=== PATIENT | female | born 1985 | race Hispanic/Latino ===

== ENCOUNTER 2021-01-03 09:48 | Day surgery (SDC) | payer OTHER ==
[~2021-01-03 09:48] MED LIST: ACETAMINOPHEN 500 MG TAB PO SCH; BUPIVACAINE/PF (0.5%) 5 MG/1 ML 30 ML VIAL INFILTRATI ONE; CELECOXIB 200 MG CAP PO NR; GABAPENTIN 300 MG CAP PO NR; MIDAZOLAM 2 MG/2 ML INJ IV NR; SCOPOLAMINE TRANSDERMAL PATCH 72 HR TD NR; SODIUM CHLORIDE 0.9% IRR 1,500 ML BOTTLE IR ONE
[2021-01-03] MEDS ORDERED: HYDROmorphone 1 MG/1 ML INJ IV PRN (10:41)
[2021-01-03] MEDS ORDERED: ONDANSETRON 4 MG/2 ML INJ IV PRN (10:41)
[2021-01-03] MEDS ORDERED: oxyCODONE /ACETAMINOPHEN 5-325MG TAB PO PRN (10:41)
--- NOTE | 2021-01-03 10:41 | Anesthesia Consultation ---
Anesthesia Consult and Med Hx Date of service: 01/03/21 - Airway Anesthetic Teeth Evaluation: Good ROM Head & Neck: Adequate Mental/Hyoid Distance: Adequate Mallampati Class: Class III Intubation Access Assessment: Possibly Difficult - Pre-Operative Health Status ASA Pre-Surgery Classification: ASA2 Proposed Anesthetic Plan: General - Pulmonary Hx Smoking: No Hx Respiratory Symptoms: No - Cardiovascular System Hx Hypertension: No - Central Nervous System CVA: No - Endocrine Hx Renal Disease: No Hx Liver Disease: No Hx Insulin Dependent Diabetes: No Hx Non-Insulin Dependent Diabetes: No Hx Hypothyroidism: Yes - Other Systems Hx Substance Use: Yes (Marijuana daily) Hx Obesity: Yes (BMI 33)
--- NOTE | 2021-01-03 10:41 | Anesthesia Day of Surgery ---
Anesthesia Day of Surgery - Day of Surgery Patient Examined: Yes Patient H&P Reviewed: Yes Patient is NPO: Yes
[2021-01-03] MEDS ORDERED: MIDAZOLAM 2 MG/2 ML INJ IV NR (11:00)
[2021-01-03] MEDS ORDERED: SCOPOLAMINE TRANSDERMAL PATCH 72 HR TD NR (11:00)
--- NOTE | 2021-01-03 11:40 | Short Stay Summary ---
Short Stay Documentation Date of service: 01/03/21 Narrative H&P: 35y/o with undesired fertility. The patient is aware of other contraceptive options. She elects for permanent sterilization. - History Principal diagnosis: Unwanted fertility Past Medical History: hypothyroidism, migraines Past Surgical History: appendectomy, cholecystectomy, , Other (lap band surgery; shoulder surgery) Social history: - Allergies and Medications Current Medications: Allergies metal Allergy (Uncoded 01/02/21 15:28) Rash With prolonged exposure Home Medications Medication Instructions Recorded Confirmed Last Taken Type Dextroamphetamine/Amphetamine 10 mg PO DAILY 01/02/21 01/02/21 Unknown History [Adderall 10 mg Tablet] Levothyroxine [Synthroid] 100 mcg PO QAM 01/02/21 01/02/21 Unknown History Omeprazole 20 mg PO DAILY PRN 01/02/21 01/02/21 Unknown History Zolpidem (Nf) [Ambien (Nf)] 10 mg PO QHS PRN 01/02/21 01/02/21 Unknown History Active Medications Acetaminophen (Acetaminophen 500 Mg Tab) 1,000 mg PO PREOP PEPPER Gabapentin (Gabapentin 300 Mg Cap) 300 mg PO PREOP NR Stop: 01/03/21 23:59 Hydromorphone HCl (Hydromorphone 1 Mg/1 Ml Inj) 0.5 mg IV Q10MIN PRN PRN Reason: Pain , Severe (7-10) Stop: 01/03/21 23:00 Lactated Ringer's (Lactated Ringers) 1,000 mls @ 100 mls/hr IV DIRECT PEPPER Stop: 01/03/21 23:59 Midazolam HCl (Midazolam 2 Mg/2 Ml Inj) 2 mg IV PREOP NR Stop: 01/03/21 23:59 Ondansetron HCl (Ondansetron 4 Mg/2 Ml Inj) 4 mg IV ONCE PRN PRN Reason: Nausea And Vomiting Stop: 01/03/21 18:00 Oxycodone/Acetaminophen (Oxycodone /Acetaminophen 5-325mg Tab) 1 tab PO ONCE PRN PRN Reason: Pain, Moderate (4-6) Stop: 01/03/21 16:00 Scopolamine (Scopolamine Transdermal Patch 72 Hr) 1 each TD PREOP NR Stop: 01/03/21 23:00 - Physical exam General appearance: no acute distress Integumentary: no rash HEENT: Atraumatic Lungs: Clear to auscultation Breasts: deferred Heart: Regular rate Gastrointestinal: normal Female Genitourinary: deferred - Brief post op/procedure progress note Date of procedure: 01/03/21 Pre-op diagnosis: Unwanted fertility Post-op diagnosis: same (Left dermoid cyst) Procedure: Laparoscopy Bilateral salpingectomy Left ovarian cystectomy Anesthesia: GETA Surgeon: DEEPAK SAVAGE Estimated blood loss: minimal Pathology: list (Left ovarian cyst wall and bilateral fallopian tubes) Specimen disposition: to lab Condition: stable - Hospital course Hospital course: The patient was admitted the day of surgery underwent a laparoscopy bilateral salpingectomy and left ovarian cystectomy. Please see operative note for details of surgery. Her postoperative course was uneventful. - Disposition Condition at discharge: Good Disposition: 01 HOME / SELF CARE / HOMELESS Short Stay Discharge Plan Activity: other (Pelvic rest for 1 week) Diet: regular Additional Instructions: Follow-up with Dr. Savage in 2 weeks Prescriptions: Ibuprofen [Motrin] 800 mg PO Q8HR PRN #30 tablet PRN Reason: Pain , Severe (7-10) HYDROcodone/APAP 5-325 [[place] 5/325] 1 each PO Q6HR PRN #15 tablet PRN Reason: Pain
[2021-01-03] MEDS: LACTATED RINGERS 1,000 ML IV SCH ×2 (11:55→16:54)
[2021-01-03] MEDS ORDERED: BUPIVACAINE/PF (0.5%) 5 MG/1 ML 30 ML VIAL INFILTRATI ONE ×2 (13:37→15:13)
[2021-01-03] MEDS ORDERED: GLYCOPYRROLATE 0.4 MG/2 ML INJ ONE (14:00)
[2021-01-03] MEDS ORDERED: NEOSTIGMINE 10MG/10 ML INJ MDV ONE (14:00)
[2021-01-03] MEDS ORDERED: dexAMETHasone 20 MG/5 ML VIAL ONE (14:00)
[2021-01-03] MEDS ORDERED: LIDOCAINE MPF (2%) 20 MG/1 ML VIAL 5 ML ONE (14:02)
[2021-01-03] MEDS ORDERED: ROCURONIUM 50 MG/5 ML INJ IV ONE (14:02)
[2021-01-03] MEDS ORDERED: ONDANSETRON 4 MG/2 ML INJ ONE (14:02)
[2021-01-03] MEDS ORDERED: propofoL 200 MG/20 ML VIAL IV ONE (14:03)
[2021-01-03] MEDS ORDERED: fentaNYL 100 MCG/2 ML INJ ONE (14:03)
[2021-01-03] MEDS ORDERED: SODIUM CHLORIDE 0.9% IRR 1,500 ML BOTTLE IR ONE (15:13)
--- NOTE | 2021-01-03 15:45 | Operative Report ---
Operative Report Operative Report: Date of surgery: January 03, 2021 Preoperative diagnosis: Unwanted fertility Postoperative diagnosis: Same as above; left dermoid tumor Procedure: Laparoscopy; Bilateral salpingectomy; left ovarian cystectomy Surgeon: Ileana Del Angel M.D. Anesthesia: General endotracheal anesthesia Estimated blood loss: Minimal Pathology: Bilateral fallopian tubes Findings: Normal uterus and tubes, left ovarian dermoid tumor Indication: 35-year-old -0-3-2 with unwanted fertility. Procedure: The patient was taken to the operating room and given general endotracheal anesthesia without complication. The patient is prepped and draped in a normal sterile fashion. A bivalve speculum was placed in the patient's vagina and a single-tooth tenaculum was placed on the anterior lip of the cervix .A uterine acorn manipulator was placed, and the bivalve speculum was then removed. Attention was then turned to the patient's abdomen where a 5 mm infraumbilical skin incision was then made. A Veress needle was placed and peritoneal entry was verified water-filled syringe. Insufflation of the periton eal cavity was performed with CO2 gas. A 5 mm trocar was placed and the laparoscope was then inserted. The patient was then placed in Trendelenburg. A 7 mm suprapubic skin incision was then made. Under direct visualization a 7 mm trocar was then placed. An additional 5 mm left lateral trocar was also placed. General survey of the patient's abdomen revealed uterus and tubes. The patient had findings of a left ovarian cyst. The fallopian tube was then followed out to the fimbriated end. The LigaSure device was used in order to coagulate and transect the mesosalpinx. The fallopian tube was excised from the adnexa. The fallopian tube was removed through the 7 mm trocar. This was performed on the contralateral side as well. Attention was then turned to the patient's left ovary which demonstrated findings of a an ovarian cyst. The monopolar scissors were used to excise the ovarian cortex. Upon entry into the ovary there was findings of a yellow appearing fatty fluid in addition to strands of hair. The monopolar scissors were used to excise a portion of the ovarian cyst wall which was removed and sent to pathology. The pneumoperitoneum was then released. The trocars were then removed. The 5 mm trocar laparoscope was then removed. The skin incisions were then closed with 4-0 Monocryl. The incisions were injected with quarter percent Marcaine. Dressings were applied to the incision. The vaginal instruments were then removed atraumatically. Then successfully extubated and taken to the recovery room. All sponge laps and needle counts were correct x2.
--- NOTE | 2021-01-03 17:01 | Post Anesthesia Evaluation ---
- Post Anesthesia Evaluation Patient Participated: Yes Airway Patent: Yes Stable Respiratory Function: Yes Nausea/Vomiting: No Temp > 96.8F: Yes Pain Manageable: Yes Adequeate Hydration: Yes Anesthesia Complications: No
[2021-01-03 17:47] VITALS: BP 132/82
== END 2021-01-03 17:29 | disposition home or self-care (01) ==
LOC: OR 09:48
PROVIDERS: ATTEND Obstetrics & Gynecology
DX: N83.202 Unspecified ovarian cyst, left side (principal); E03.9 Hypothyroidism, unspecified; E66.9 Obesity, unspecified; K21.9 Gastro-esophageal reflux disease without esophagitis; F41.9 Anxiety disorder, unspecified; F32.9 Major depressive disorder, single episode, unspecified; Z79.899 Other long term (current) drug therapy; Z98.890 Other specified postprocedural states
CPT/HCPCS: 58661; 58662; 81025; 88302; 88305; J1100; J2250; J2405; J2704; J2710; J3010; J7120